=== PATIENT | male | born 1990 | race African-American/Black ===

== ENCOUNTER 2019-05-31 12:58 | Emergency (ER) | payer SELFPAY ==
[~2019-05-31] VITALS: Ht 162.6 cm; Wt 59.4 kg
[2019-05-31 14:55] VITALS: BP 154/90
== END 2019-05-31 14:56 | disposition home or self-care (01) ==
LOC: ED 12:58
DX: F10.239 Alcohol dependence with withdrawal, unspecified (principal); F41.9 Anxiety disorder, unspecified
CPT/HCPCS: J2060